=== PATIENT | male | born 1970 | race Caucasian/White ===

== ENCOUNTER 2022-10-03 12:53 | Outpatient (CLI) | payer OTHER, SELFPAY ==
--- NOTE | 2022-10-03 13:00 | MR_ITS ---
[address] [address] Phone:?[phone] Fax:?[phone] Referring Physician Information: Deven Conrad M.D. [id number] [facility] [address] Phone:?[phone] Fax:?[phone] Patient:Wilmar Amaya D.O.B:?1970 Sex:?Male Phone:?[phone] [facility] MRN:?[id number] Exam Date:?10/03/2022 ? EXAM: MRI of the RIGHT HIP, without contrast CLINICAL: Right hip pain for one year. COMPARISONS: None available. TECHNICAL: MR sequences of the right hip: Axials: PD FS Axial oblique: PD Coronals: PD, T2 Coronal pelvis: T1 and STIR Sagittals: PD and T2 SEDATION: None. CONTRAST: None. FINDINGS: Hip joint: Small right hip joint effusion is present. There is synovitis and possibly small intermixed intra-articular bodies within the right hip joint. Full-thickness chondral loss involves the superior right hip joint. Labrum: Ill-defined degenerative fraying/tearing involves the anterosuperior labrum. Tiny perilabral cyst adjacent to the superior labrum on coronal series 2 image 16 Proximal femur: No marrow edema, fracture or osteonecrosis. Mild degenerative peripheral marginal spurring involving the femoral head neck junction. Acetabulum: No acetabular fracture identified. There is mild degenerative peripheral marginal spurring involving the acetabulum. Degenerative subchondral cystic change involves the anterosuperior acetabulum and there is minimal subchondral reactive marrow edema involving the peripheral superior acetabulum. Version: No convincing retroversion. Coverage: Right lateral center edge (CE) angle measures approximately 17? (normal 25?-39?), midline coronal series 4 image 14. Ligamentum teres: Intact and unremarkable. Pelvis osseous structures: No suspicious marrow signal alteration or fracture line. Sacroiliac joints are maintained without marrow signal changes to suggest sacroiliitis or significant arthrosis. No evident arthrosis or changes of osteitis pubis at the symphysis pubis. Myotendinous structures: Gluteus abductors: No convincing insertional tendinopathy or tear of gluteus minimus or medius. Adductors: No demonstrable tendinopathy or strain/tear. Pre-pubic aponeurotic complex: Intact, without evidence of common rectus abdominis-adductor longus aponeurosis or pubic plate lesion. Hamstrings: Intact semimembranosus, semitendinosus and biceps femoris tendons, without tendinopathy or tear. Flexors: Intact iliopsoas and rectus femoris, without strain/tear. External rotators: Intact. The ischiofemoral and quadratus femoris spaces are within normal limits. Gluteal aponeurotic fascia and IT band: Unremarkable. Bursae: No demonstrable trochanteric or iliopsoas bursitis. Intrapelvic structures: Although evaluation of the intrapelvic structures is limited on this exam, no convincing pelvic mass is identified as visualized. IMPRESSION: 1. Full-thickness chondral loss involving the right hip joint with osseous changes of right hip osteoarthritis as above. Small right hip joint effusion with synovitis and possibly small intermixed intra-articular bodies. 2. Low volume right hip consistent with hip dysplasia. 3. Ill-defined degenerative fraying/tearing involving the anterosuperior labrum. 4. No evidence of fracture or myotendinous injury. [facility] Electronically signed on 10/03/2022 4:42:00 PM by Jose Caceres D.O.
== END 2022-10-03 12:54 | disposition home or self-care (01) ==
LOC: MRI 12:54
PROVIDERS: PCP Family Medicine; Visit Provider Orthopaedic Surgery
DX: M25.551 Pain in right hip (principal); M16.11 Unilateral primary osteoarthritis, right hip; M25.451 Effusion, right hip; Q65.89 Other specified congenital deformities of hip; S73.191A Other sprain of right hip, initial encounter
CPT/HCPCS: 73721